=== PATIENT | male | born 2000 | race Caucasian/White ===

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

== ENCOUNTER 2021-11-21 13:22 | Emergency (ER) | payer OTHER ==
--- NOTE | 2021-11-21 13:50 | NUR ---
ATTEMPTED TO CALL TO TRIAGE, NO ANSWER
--- NOTE | 2021-11-21 14:17 | NUR ---
2ND ATTEMPT TO CALL TO TRIAGE, NO ANSWER.
--- NOTE | 2021-11-21 14:37 | NUR ---
3RD NO ANSWER TO TRIAGE
--- NOTE | 2021-11-21 14:38 | NUR ---
PATIENT LEFT WITHOUT BEING SEEN BY DR. HELM. NO FURTHER CARE PROVIDED FOR PATIENT.
== END 2021-11-21 14:38 | disposition left against medical advice (07) ==
LOC: MED 13:22
DX: S99.929A Unspecified injury of unspecified foot, initial encounter (principal); Z53.21 Procedure and treatment not carried out due to patient leaving prior to being seen by health care provider; W45.0XXA Nail entering through skin, initial encounter; Y92.89 Other specified places as the place of occurrence of the external cause; Y93.89 Activity, other specified; Y99.8 Other external cause status